=== PATIENT | female | born 2000 | race Caucasian/White ===

== ENCOUNTER 2021-08-06 13:08 | Emergency (ER) | payer OTHER, SELFPAY ==
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
[2021-08-06 13:13] VITALS: BP 123/64; PULSE 94
[2021-08-06 13:15] VITALS: BP 133/79; PULSE 80; RESP 16; TEMP 36.5; O2SAT 100
[2021-08-06 13:18] VITALS: BP 133/79; PULSE 97; RESP 18; TEMP 37.4; O2SAT 97; BMI 15.6
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
== END 2021-08-06 14:53 | disposition home or self-care (01) ==
PROVIDERS: Emergency Provider Emergency Medicine; PCP Hospitalist
DX: S09.90XA Unspecified injury of head, initial encounter (principal); V47.5XXA Car driver injured in collision with fixed or stationary object in traffic accident, initial encounter; Y93.89 Activity, other specified; Y92.414 Local residential or business street as the place of occurrence of the external cause; Y99.9 Unspecified external cause status
CPT/HCPCS: 70450; 99284

== ENCOUNTER 2022-01-30 06:13 | Outpatient (REF) | payer OTHER, SELFPAY ==
[2022-01-30 07:17] LABS: Hemoglobin 13.2 g/dl (12.0-16.0); Mean Corpuscular HGB Conc 32.2 g/dl (31.0-35.0); Mean Corpuscular Hemoglobin 27.4 pg (27.0-33.0); Mean Corpuscular Volume 85.2 fL (80.0-98.0); Mean Platelet Volume 11.2 fL (9.4-12.3); Platelet Count 170 X10*3/uL (160-400); Red Blood Count 4.81 X10*6/uL (4.20-5.50); Red Cell Distribution Width 11.9 % (11.0-16.0); White Blood Count 5.6 X10*3/uL (4.8-10.8)
[2022-01-30 07:58] LABS: TSH reflex Free T4 2.09 uIU/mL (0.32-4.0)
[2022-01-30 08:03] LABS: Alanine Aminotransferase 14 U/L (0-31); Albumin Level 4.4 g/dL (3.5-5.0); Alkaline Phosphatase 70 U/L (39-117); Anion Gap 12 (12-20); Aspartate Amino Transferase 18 U/L (5-31); Bilirubin Total 0.9 mg/dL (0.0-1.0); Blood Urea Nitrogen 10 mg/dL (9-16); Calcium 9.9 mg/dL (8.4-10.2); Carbon Dioxide 25 mmol/L (22-29); Chloride 104 mmol/L (96-108); Cholesterol 126 mg/dL; Estimated Glomerular Filt Rate > 60; Glucose Fasting 79 mg/dL (60-99); HDL Cholesterol 48 mg/dL; LDL Cholesterol Calculated 63 mg/dl; Potassium 4.2 mmol/L (3.3-5.1); Sodium 137 mmol/L (135-145); Total Protein 7.8 g/dL (6.5-8.0); Triglycerides 78 mg/dL
== END 2022-01-30 06:14 | disposition home or self-care (01) ==
LOC: HO.LAB 06:13
PROVIDERS: PCP Hospitalist; Visit Provider Hospitalist
DX: Z00.00 Encounter for general adult medical examination without abnormal findings (principal)
CPT/HCPCS: 36415; 80053; 80061; 84443; 85027

== ENCOUNTER 2023-09-12 11:16 | Outpatient (AMB) | payer OTHER, SELFPAY ==
--- NOTE | 2023-09-12 12:02 | MHC.OFFWIV ---
Intake Vital Signs 09/12/23 12:20 Weight 113 lb BP 128/70 Blood Pressure Location Lt brachial Position Sitting Pulse 91 Pulse Source Pulse Oximeter Pulse Oximetry (%) 99 Oxygen Delivery Method Room Air Intake Visit Reasons: EP AB pain [phone] Intake Note: pt is here today for AB pain started today Patient Tobacco Use Status: Never used Tobacco Allergies No Known Allergies Allergy (Verified 09/12/23 12:03) Do you need a note to return to daycare/school/sports/work: Yes HPI HPI Comments History of Present Illness Details 23-year-old female who is otherwise healthy presented to the walk-in clinic complaining lower abdominal pain. Patient states she has been feeling over the past several days. She woke up this morning with a stabbing pain in her mid lower abdomen. She states this lasted for a few minutes and essentially resolved though she does still have some mild lower abdominal discomfort. She denies any nausea//diarrhea. She denies any abdominal distention. She reports her last bowel movement was 1 week ago. She denies any dysuria/hematuria or urinary frequency/urgency. She denies any fevers or chills. [facility] Medical History (Updated 09/09/22 @ 17:49 by Mamadou Lucio MD) No known health problems Social History (System 10/08/21 @ 12:46 by Carito Benito) Patient Tobacco Use Status: Never used Tobacco Review of Systems Const All systems reviewed & are unremarkable except as noted in HPI and below Reports no additional complaints Eyes Reports no additional complaints ENT Reports no additional complaints Card Reports no additional complaints Resp Reports no additional complaints GI Reports no additional complaints Reports no additional complaints Musc Reports no additional complaints Skin/Breast Reports system reviewed and no additional complaints, except as documented Neuro Reports no additional complaints Psych Reports no additional complaints Endo Reports no additional complaints Joao/Lymph Reports no additional complaints Aller/Immun Reports no additional complaints Physical Exam Vital Signs: Last Vital Signs Pulse 91 09/12/23 12:20 BP 128/70 09/12/23 12:20 Pulse Ox 99 09/12/23 12:20 Oxygen Delivery Method Room Air 09/12/23 12:20 Const Other: Vital signs reviewed. Constitutional: Non-toxic appearing. No acute distress. Well-developed and well-nourished. HEENT: Normocephalic and atraumatic. Skin: Warm and dry. No rashes or lesions noted. Neck: Full and painless range of motion. No cervical lymphadenopathy. Cardio: Regular rate and rhythm. No murmurs, gallops, or rubs. No lower extremity edema. No JVD. Pulmonary: No respiratory distress. No accessory muscle usage. Gastrointestinal: Her abdomen is soft and nondistended. She has sounds in all 4 quadrants. She has minimal suprapubic tenderness to palpation. There is no rebound or guarding. Genitourinary: No CVA tenderness. Musculoskeletal: Normal range of motion in joints throughout the body. No deformity or other signs of injury. Neuro: Alert and oriented x4. Cranial nerves 2-12 grossly intact. No focal deficits appreciated. Psych: Normal mood and affect. Results AMB Urinalysis, Automated UA Leukoctes 0 Gustavo/uL Last Edit by Jose Alberto Ruiz CMA on 09/12/23 12:46 UA Nitrite Negative Last Edit by Jose Alberto Ruiz CMA on 09/12/23 12:46 UA Urobilinogen 0.2 mg/dL Last Edit by Jose Alberto Ruiz CMA on 09/12/23 12:46 UA Protein 0 mg/dL Last Edit by Jose Alberto Ruiz CMA on 09/12/23 12:46 UA pH 5.5 Last Edit by Jose Alberto Ruiz CMA on 09/12/23 12:46 UA Blood 0 Pacheco/uL Last Edit by Jose Alberto Ruiz CMA on 09/12/23 12:46 UA Specific Buchanan 1.030 Last Edit by Jose Alberto Ruiz CMA on 09/12/23 12:46 UA Ketone Negative Last Edit by Jose Alberto Ruiz CMA on 09/12/23 12:46 UA Bilirubin 1 mg/dL Last Edit by Jose Alberto Ruiz CMA on 09/12/23 12:46 UA Glucose 0 mg/dL Last Edit by Jose Alberto Ruiz CMA on 09/12/23 12:46 Results Reviewed Results Reviewed: Laboratory Last Values Urine pH (Auto) 5.5 09/12/23 12:45 Specific Buchanan (Auto) 1.030 09/12/23 12:45 Urine Protein (Auto) 0 mg/dL 09/12/23 12:45 Glucose (UA)(Auto) 0 mg/dL 09/12/23 12:45 Urine Ketones (Auto) Negative 09/12/23 12:45 Urine Blood (Auto) 0 Pacheco/uL 09/12/23 12:45 Urine Nitrite (Auto) Negative 09/12/23 12:45 Urine Bilirubin (Auto) 1 mg/dL 09/12/23 12:45 Urine Urobilinogen (Auto) 0.2 mg/dL 09/12/23 12:45 Leukocyte Esterase (Auto) 0 Gustavo/uL 09/12/23 12:45 Assessment & Plan Assessment & Plan (1) Abdominal pain: Code(s): R10.9 - Unspecified abdominal pain Qualifiers: Abdominal location: lower abdomen, unspecified Qualified Code(s): R10.30 - Lower abdominal pain, unspecified (2) Constipation: Code(s): K59.00 - Constipation, unspecified Qualifiers: Constipation type: unspecified constipation type Qualified Code(s): K59.00 - Constipation, unspecified Plan This is a 23 old female presenting to the office complaining of suprapubic/lower abdomen that lasted for a few minutes earlier this morning. The patient otherwise has no associated symptoms including nausea/vomiting/diarrhea, fever/chills, urinary symptoms, vaginal discharge/bleeding. The patient is not sexually active at this time and she reports she recently had her period so she is not concerned about . I will check routine labs including CBC, CMP, and lipase as well as a urinalysis to rule out acute intra-abdominal infection though I have very low suspicion given benign abdominal exam other than mild suprapubic tenderness to palpation. The patient has normoactive bowel sounds without abdominal distention or nausea/vomiting so bowel obstruction is also unlikely. If labs and urine are negative, the patient's abdominal pain is likely secondary to constipation as she has not had a bowel movement in 1 week. Her urine was negative so leuk esterase, nitrites, and blood. Patient declined test as above. I have sent prescriptions for MiraLax 17 g daily and Colace 100 mg daily as well as simethicone as needed for abdominal cramping/pain. Patient was advised to follow-up here or proceed to the emergency room if she were to develop persistent or worsening symptoms. Orders: Orders Complete Blood Count Auto Diff Today R10.9 - Unspecified abdominal pain Comprehensive Met. Panel Today R10.9 - Unspecified abdominal pain Lipase Today R10.9 - Unspecified abdominal pain AMB Urinalysis Automated Today Z13.9 - Encounter for screening, unspecified Medications: New simethicone (Gas Relief 80 (simethicone)) 80 mg PO TID-QID PRN 14 tabs 0RF abdominal distention/cramping polyethylene glycol 3350 (Miralax) 17 grams PO DAILY 14 ea 0RF docusate sodium 100 mg PO DAILY 14 caps 0RF Coding Level of Care Code Est Pt Level 3 (70644) Diagnoses Lower abdominal pain R10.30 Abdominal location: lower abdomen, unspecified Constipation, unspecified constipation type K59.00 Constipation type: unspecified constipation type
[2023-09-12 12:20] VITALS: BP 128/70; PULSE 91; O2SAT 99
== END 2023-09-12 13:13 | disposition home or self-care (01) ==
PROVIDERS: PCP Hospitalist; Visit Provider Physician Assistant Medical
DX: R10.30 Lower abdominal pain, unspecified (principal); K59.00 Constipation, unspecified
CPT/HCPCS: 81003; 99213

== ENCOUNTER 2023-09-12 12:53 | Outpatient (REF) | payer OTHER, SELFPAY ==
[2023-09-12 16:07] LABS: MANUAL DIFF FLAG NO
[2023-09-12 16:23] LABS: Basophils Percent Auto 0.2 % (0-2); Eosinophils Absolute Auto 0.1 X10*3/uL (0.0-0.4); Hematocrit 41.6 % (37.0-47.0); Hemoglobin 13.5 g/dl (12.0-16.0); Imm Gran Abs Auto 0.03 X10*3/uL (0.00-0.03); Imm Gran Pct Auto 0.4 % (0.0-0.4); Lymphocytes Absolute Auto 1.3 X10*3/uL (1.2-4.9); Lymphocytes Percent Auto 16.2 % (20-40); Mean Corpuscular HGB Conc 32.5 g/dl (31.0-35.0); Mean Corpuscular Hemoglobin 27.9 pg (27.0-33.0); Mean Platelet Volume 11.6 fL (9.4-12.3); Monocytes Absolute Auto 0.6 X10*3/uL (0.1-1.2); Monocytes Percent Auto 7.1 % (2-11); Neutrophils Absolute Auto 6.1 x10*3/uL (2.0-8.3); Neutrophils Percent Auto 75.1 % (45-73); Platelet Count 202 X10*3/uL (160-400); Red Blood Count 4.84 X10*6/uL (4.20-5.50); Red Cell Distribution Width 12.3 % (11.0-16.0); White Blood Count 8.1 X10*3/uL (4.8-10.8)
[2023-09-12 16:43] LABS: Alanine Aminotransferase 10 U/L (0-31); Albumin Level 4.6 g/dL (3.5-5.0); Alkaline Phosphatase 65 U/L (39-117); Anion Gap 10 (12-20); Aspartate Amino Transferase 17 U/L (5-31); Blood Urea Nitrogen 7 mg/dL (9-16); Calcium 9.7 mg/dL (8.4-10.2); Carbon Dioxide 24 mmol/L (22-29); Chloride 108 mmol/L (96-108); Estimated Glomerular Filt Rate > 60; Glucose Random 85 mg/dL (60-115); Lipase 12 U/L (8-78); Sodium 138 mmol/L (135-145); Total Protein 8.1 g/dL (6.5-8.0)
== END 2023-09-12 12:54 | disposition home or self-care (01) ==
LOC: HO.HMGCLDS 12:53
PROVIDERS: Visit Provider Physician Assistant Medical
DX: R10.9 Unspecified abdominal pain (principal)
CPT/HCPCS: 36415; 80053; 83690; 85025

== ENCOUNTER 2023-10-29 12:26 | Outpatient (AMB) | payer OTHER, SELFPAY ==
--- NOTE | 2023-10-29 12:36 | MHC.PC.OV ---
Vital Signs 10/29/23 12:41 Height 5 ft 8 in Weight 112 lb BMI 17.0 BP 120/68 Blood Pressure Location Lt brachial Position Sitting Respiration 12 Pulse 74 Pulse Source Pulse Oximeter Temp 99.3 F Temp Source Temporal Artery Scan Pulse Oximetry (%) 100 Oxygen Delivery Method Room Air Intake Visit Reasons: Trans. from SV-Physical Exam Intake Note: Patient is here for a physical for work. 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 Patient reports no concerns at this time. 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 Accompanied by: Self / Same As Patient Allergies No Known Allergies Allergy (Verified 10/29/23 13:05) Medication List - Last Reconciled 10/29/23 by HARMONY Tan cetirizine (Zyrtec) 10 mg PO DAILY ibuprofen 600 mg PO Q8H PRN Tobacco use date assessed: 10/29/23 Dental Screening Dental Screen Date: 10/29/23 Did you have a dental visit in the last 12 months?: Yes Did you have a dental problem in the last 6 months where you did not have access to dental care?: No Was dental information given to patient?: Patient has dentist HPI HPI Comments History of Present Illness Details 23-year-old female with Seasonal allergies Health maintenance Pap smear never; referral placed today Eyes no concerns; no recent eye exam Skin no issues Dental routine Vaccines UTD, declines flu Surgeries: None Hospital: none in last year Family Medical Hx: Mom and Dad Alive. No children. Siblings: brother and sister alive and well Labs from 09/12/2023 show normal CBC, normal CMP, normal urine labs from January of 2022 show normal cholesterol profile Here today for [facility] Medical History No known health problems Surgical History No pertinent past surgical history Social History Household Members: Family Housing: House 75 years or older and lives alone: No Alcohol intake: never Patient Tobacco Use Status: Never used Tobacco e-Cigarette/Vaping Use: Never Used service: No Current occupational status: employed Current occupation: Teacher Sexual orientation: Unable to collect Gender identity: Unable to collect Cognitive needs: No Hearing needs: No Vision needs: No Questionnaire PHQ-9 Over the last 2 weeks, how often have you been bothered by any of the following problems? 1. Little interest or pleasure in doing things: not at all 2. Feeling down, depressed, or hopeless: not at all 3. Trouble falling or staying asleep, or sleeping too much: not at all 4. Feeling tired or having little energy: not at all 5. Poor appetite or overeating: not at all 6. Feeling bad about yourself - or that you are a failure or have let yourself or your family down: not at all 7. Trouble concentrating on things, such as reading the newspaper or watching television: not at all 8. Moving or speaking so slowly that other people could have noticed. Or the opposite - being so fidgety or restless that you have been moving around a lot more than usual: not at all 9. Thoughts that you would be better off or of hurting yourself in some way: not at all Total score: 0 Depression Screening Interpretation: Negative Depression Screening Done: Yes 90292 - PHQ-9 Billing: Yes Source: Developed by Drs. Remington Cordova, Blank Nesbitt, Landry Torres and colleagues, with an educational neal from [employer]. Thrive Questionnaire Date Thrive assessed: 10/29/23 I am a: Patient What is your living situation today?: I have a steady place to live Within the past 12 months, did the food you bought not last and you didn't have the money to get more?: Never true Within the past 12 months, did you worry whether your food would run out before you got money to buy more?: Never true Do you have trouble paying for medicines?: No Do you have trouble getting transportation to medical appointments?: No Do you have trouble paying your heating and electricity bill?: No Do you have trouble taking care of your child, family member or friend?: No Do you have trouble with day-to-day activities such as bathing, preparing meals, shopping, managing finances, etc.?: No Are you currently unemployed and looking for a job?: No Are you interested in more education?: No Please select the resources that you would like help with: None Currently or been in a relationship where the following occur: no concerns reported THRIVE Score: 0 AUDIT C Alcohol Use Questionnaire (AUDIT-C) 1. How often do you have a drink containing alcohol?: Never 3. How often do you have six or more drinks on one occasion?: Never Total Score: 0 Score Reviewed/Action Taken: Yes RHEA-7 AMB Questionnaire RHEA-7 Date RHEA - 7 assessed: 10/29/23 Feeling nervous, anxious, or on edge: 0 = Not at all Not being able to stop or control worryin = Not at all Worrying too much about different things: 0 = Not at all Trouble relaxin = Not at all Being so restless that it is hard to sit still: 0 = Not at all Becoming easily annoyed or irritable: 0 = Not at all Feeling afraid as if something awful might happen: 0 = Not at all Total RHEA-7 score (0-4 normal; 5-9 mild; 10-14 moderate; 15-21 severe): 0 Source: Developed by Drs. Remington Cordova, Blank Nesbitt, Landry Torres and colleagues, with an educational neal from [employer]. RHEA-7 Assessment Billing RHEA-7 Assessment Tool: RHEA-7 Assessment 85987 Review of Systems Const Details: Constitutional: Denies fever. Skin: Denies rash. Eye: Denies eye pain. ENMT: Denies sore throat and nasal congestion. Respiratory: Denies shortness of breath and cough. Gastrointestinal: Denies nausea, vomiting or abdominal pain. Cardiovascular: Denies chest pain and syncope. Genitourinary: Denies dysuria. Musculoskeletal: Denies back pain and extremity pain. Neurologic: Denies headaches, confusion, and weakness. Psychiatric: Denies suicidal thoughts and substance abuse. Allergy/ Immunologic: Denies impaired immunity. Physical exam (Primary Care) Vital Signs: Last Vital Signs Temp 99.3 F 10/29/23 12:41 Pulse 74 10/29/23 12:41 Resp 12 10/29/23 12:41 BP 120/68 10/29/23 12:41 Pulse Ox 100 10/29/23 12:41 Oxygen Delivery Method Room Air 10/29/23 12:41 BMI result Body Mass Index 17.0 BMI Assessment/Plan discussion: Low BMI Low, Plan discussed: increase calorie intake Tobacco/Smoking Status: Tobacco use Status Tobacco use date assessed 10/29/23 10/29/23 12:56 Patient Tobacco Use Status Never used Tobacco 10/29/23 12:54 e-Cigarette/Vaping Use Never Used 10/29/23 12:56 PHQ-9: PHQ-9 Score PHQ-9: Total score 0 10/29/23 13:08 Depression Screening Interpretation: Negative Thrive Assessment: Date of Thrive Assessment Date Thrive assessed 10/29/23 10/29/23 12:56 Currently or been in a relationship where the following occur: no concerns reported Const Other: General: Thin Head: Normocephalic, atraumatic. Eyes: Pupils are equal, round and reactive to light and accommodation. Conjunctivae are clear. Vision grossly normal. Ears: TMs clear AU, EACS WNL Nose: Patent, without discharge. Mouth: There are no ulcers or lesions noted. No inflammation, no post nasal drip, no plaques nor exudates. Neck: Supple, no adenopathy or thyromegaly. Lungs: Clear to auscultation bilaterally. No rales, rhonchi or wheeze noted. Good air flow in all morelos. Heart: Regular rate and rhythm. No murmurs, click, rubs or gallops are noted. Abdomen: Bowel sounds present in all quadrants. The abdomen is soft, nontender, with no masses or organomegaly noted. No hernias are noted. Musculoskeletal: Joints are nontender, without swelling, redness, or effusions. Range of motion is observed to be normal. Pulses: Peripheral pulses are equal and palpable bilaterally. Extremities: No clubbing, cyanosis nor edema is noted. Neurologic: Gait and station normal. Cranial Nerves 2-12 intact. Motor strength grossly symmetrical and intact. No sensory loss. Balance normal. Skin: No rashes, ulcers, or lesions noted. Turgor is good. Skin color is good. Hair and nails are without abnormalities. Psych: Normal eye contact, affect and mood appropriate, and normal interactions. Patient is alert and appropriate to context. Assessment and Plan Assessment & Plan (1) Normal physical exam: Code(s): Z00.00 - Encounter for general adult medical examination without abnormal findings (2) Cervical cancer screening: Code(s): Z12.4 - Encounter for screening for malignant neoplasm of cervix Orders: Referrals [facility]ER Referral Z00.00 - Encounter for general adult medical examination without abnormal findings, Z12.4 - Encounter for screening for malignant neoplasm of cervix Patient Instructions: Health screenings for women ages 18 to 39 You should visit your health care provider from time to time, even if you are healthy. The purpose of these visits is to: Screen for medical issues Assess your risk for future medical problems Encourage a healthy lifestyle Update vaccinations and other preventive care services Help you get to know your provider in case of an illness Information Even if you feel fine, you should still see your provider for regular checkups. These visits can help you avoid problems in the future. For example, the only way to find out if you have high blood pressure is to have it checked regularly. High blood sugar and high cholesterol levels also may not have any symptoms in the early stages. A simple blood test can check for these conditions. There are specific times when you should see your provider or receive specific health screenings. The [place] Preventive Services Task Force publishes a list of recommended screenings. Below are screening guidelines for women ages 18 to 39. BLOOD PRESSURE SCREENING Your blood pressure should be checked at least once every 3 to 5 years if: Your blood pressure is in the normal range (top number less than 120 mm Hg and bottom number less than 80 mm Hg) You don't have risk factors for high blood pressure Ask your provider if you need your blood pressure checked more often if: The top number is 120 to 129 mm Hg or the bottom number is 70 to 79 mm Hg You have diabetes, heart disease, kidney problems, are overweight, or have certain other health conditions You have a first-degree relative with high blood pressure You are Black You had high blood pressure during a If the top number is 130 mm Hg or greater or the bottom number is 80 mm Hg or greater, this is considered stage 1 hypertension. Schedule an appointment with your provider to learn how you can reduce your blood pressure. Watch for blood pressure screenings in your area. Ask your provider if you can stop in to have your blood pressure checked. BREAST CANCER SCREENING Experts do not agree about the benefits of breast self-exams in finding breast cancer or saving lives. Talk to your provider about what is best for you. A screening mammogram is not recommended for most women under age 40. Your provider may discuss and recommend mammograms, MRI scans, or ultrasounds if you have an increased risk for breast cancer, such as: A mother or sister who had breast cancer at a young age (most often starting screening earlier than the age the close relative was diagnosed) You carry a high-risk genetic marker CERVICAL CANCER SCREENING Cervical cancer screening should start at age 21 years unless your provider advises otherwise. After the first test: Women ages 21 through 29 should have a Pap test every 3 years. Exoprts do not agree on whether HPV testing is recommended for this age group. Women ages 30 through 65 should be screened with either a Pap test every 3 years or the HPV test every 5 years or both tests every 5 years (called cotesting ). Women who have been treated for precancer (cervical dysplasia) should continue to have Pap tests for 20 years after treatment or until age 65, whichever is longer. If you have had your uterus and cervix removed (total hysterectomy), and you have not been diagnosed with cervical cancer or precancer (high grade cervical neoplasia), you do not need cervical cancer screening. CHOLESTEROL SCREENING Cholesterol screening should begin at: Age 45 for women with no known risk factors for coronary heart disease Age 20 for women with known risk factors for coronary heart disease Repeat cholesterol screening should take place: Every 5 years for women with normal cholesterol levels More often if changes occur in lifestyle (including weight gain and diet) More often if you have diabetes, heart disease, kidney problems, or certain other conditions DIABETES SCREENING You should be screened for diabetes starting at age 35 and then repeated every 3 years if you have no risk factors for diabetes. Screening may need to start earlier and be repeated more often if you have other risk factors for diabetes, such as: You have a first degree relative with diabetes. You are overweight or have obesity. You have high blood pressure, prediabetes, or a history of heart disease. Screening for diabetes should be done if you are planning to become and you are overweight and have other risk factors such as high blood pressure. DENTAL EXAM Go to the dentist once or twice every year for an exam and cleaning. Your dentist will evaluate if you need more frequent visits. EYE EXAM Have an eye exam every 5 to 10 years before age 40. If you have vision problems, have an eye exam every 2 years or more often if recommended by your provider. You should have an eye exam that includes an examination of your retina (back of your eye) at least every year if you have diabetes. IMMUNIZATIONS Commonly needed vaccines include: Flu shot: get one every year. COVID-19 vaccine: ask your provider what is best for you. Tetanus-diphtheria and acellular pertussis (Tdap) vaccine: have one at or after age 19 as one of your tetanus-diphtheria vaccines if you did not receive it as an adolescent. Tetanus-diphtheria: have a booster (or Tdap) every 10 years. Varicella vaccine: receive 2 doses if you never had chickenpox or the varicella vaccine. Hepatitis B vaccine: receive 2, 3, or 4 doses, depending on your exact circumstances. Measles, mumps, and rubella (MMR) vaccine: receive 1 to 2 doses if you are not already immune to MMR. Your provider can tell you if you are immune. Ask your provider about the human papillomavirus (HPV) vaccine if: You have not received the HPV vaccine in the past You have not completed the full vaccine series (you should catch up on this shot) Ask your provider if you should receive other immunizations if you have certain health problems that increase your risk for some diseases such as pneumonia. INFECTIOUS DISEASE SCREENING Women who are sexually active should be screened for chlamydia and gonorrhea up until age 25. Women 25 years and older should be screened for chlamydia and gonorrhea if at high risk. Screening for hepatitis C: All adults ages 18 to 79 should get a one-time test for hepatitis C. people should be screened at every . Screening for human immunodeficiency virus (HIV): All people ages 15 to 65 should get a one-time test for HIV. Depending on your lifestyle and medical history, you may also need to be screened for infections such as syphilis and HIV, as well as other infections. PHYSICAL EXAM All adults should visit their provider from time to time, even if they are healthy. The purpose of these visits is to: Screen for disease Assess your risk of future medical problems Encourage a healthy lifestyle Update your vaccinations and other preventive care services Maintain a relationship with a provider in case of an illness Your height, weight, and BMI should be checked at every exam. During your exam, your provider may ask you about: Depression and anxiety Diet and exercise Alcohol and tobacco use Safety issues, such as using seat belts, smoke detectors, and intimate partner violence Your medicines and risk for interactions SKIN SELF-EXAM Your provider may check your skin for signs of skin cancer, especially if you're at high risk, such as if you: Have had skin cancer before Have close relatives with skin cancer Have a weakened immune system OTHER SCREENING Talk with your provider about colon cancer screening if you have a strong family history of colon cancer or polyps, or if you have had inflammatory bowel disease or polyps yourself. Routine bone density screening of women under 40 is not recommended. Review Flu Vaccine not done: patient reason Coding Level of Care Code Est Pt Prev Care 18-39y(07051) Diagnoses Normal physical exam Z00.00 Cervical cancer screening Z12.4 Additional Codes RHEA-7 Assessment Billing - RHEA-7 Assessment Tool: RHEA-7 Assessment [id number] ([id number])
[2023-10-29 12:41] VITALS: BP 120/68; PULSE 74; RESP 12; TEMP 37.4; O2SAT 100; BMI 17.0
== END 2023-10-29 13:17 | disposition home or self-care (01) ==
PROVIDERS: PCP Hospitalist; Visit Provider Nurse Practitioner Family
DX: Z00.00 Encounter for general adult medical examination without abnormal findings (principal); Z12.4 Encounter for screening for malignant neoplasm of cervix
CPT/HCPCS: 99395

== ENCOUNTER 2023-12-23 13:02 | Outpatient (REF) | payer OTHER, SELFPAY | END 2023-12-23 13:03 | disposition home or self-care (01) | LOC: HO.LAB 13:02 | PROVIDERS: PCP Hospitalist; Visit Provider Advanced Practice Midwife | DX: Z01.419 Encounter for gynecological examination (general) (routine) without abnormal findings (principal) | CPT/HCPCS: 88142; 99385 ==

== ENCOUNTER 2023-12-23 13:02 | Outpatient (AMB) | payer OTHER, SELFPAY ==
--- NOTE | 2023-12-23 13:04 | A.OFFVIS_ITS ---
Vital Signs 12/23/23 13:09 Height 5 ft 8 in Weight 113 lb BMI 17.2 BP 110/60 Intake Visit Reasons: New patient Annual Obiee Lead Developer Required: No Information Interpreted: clinical only Distance Education Director: Distance Education Director Present Allergies No Known Allergies Allergy (Verified 12/23/23 13:12) Medication List - Last Reconciled 12/23/23 by Shahnaz Ramsey CNM cetirizine (Zyrtec) 10 mg PO DAILY ibuprofen 600 mg PO Q8H PRN Is last menstrual period known: Yes Last menstrual period: 11/29/23 Do you need a note to return to daycare/school/sports/work: No HPI HPI New patient Annual: Details: Is here for her 1st superintendent horticulture exam she brought her mother alone for moral support she checked with her mom about answers to certain questions. She is not sexually active she never has been she said she thought about it once when she was 15 but did not do anything about it. She has no questions about control she has no interest in being sexually active at this time. 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 She is healthy she tries to eat well and take care of herself and is active. She is allergic to her 3 dogs and she takes Zyrtec to deal with the allergies. She just switched nurse practitioners the when she had left. She used to go to [facility] when she was young her mother says that she got all of her vaccines including the HPV vaccine. She is nervous about having her 1st pelvic exam today. Her periods are regular her last 3-5 days they come right when she expects them to and she has some mild cramps but they do not stop her from doing what she needs to do and she just moves on.. [facility] Medical History No known health problems Surgical History No pertinent past surgical history Social History Household Members: Family Housing: House 75 years or older and lives alone: No Alcohol intake: never Patient Tobacco Use Status: Never used Tobacco e-Cigarette/Vaping Use: Never Used service: No Current occupational status: employed Current occupation: Teacher Sexual orientation: Unable to collect Gender identity: Unable to collect Cognitive needs: No Hearing needs: No Vision needs: No Female Reproductive History Menstrual Age of Menarche: 13 Duration of menses: 3-5 days Date of last menstrual period: 11/29/23 control method: none Total pregnancies: 0 Full term: 0 History of abnormal pap smear: No (no previous pap) Physical Exam Vital Signs: Last Vital Signs BP 110/60 12/23/23 13:09 BMI result Body Mass Index 17.2 Const General: healthy appearing, comfortable, no acute distress, well developed and alert Nutritional Appearance: average body habitus and thin Orientation/consciousness: patient oriented x3 Limitations: no limitations HEENT Head: Yes normocephalic Neck Neck: Yes normal visual inspection Chest Chest palpation & inspection: normal inspection of the chest Breast/axilla inspection: normal inspection of the breasts and normal inspection of the axillae Breast/axilla palpation: normal palpation of the breasts and normal palpation of the axillae Resp Effort & Inspection: normal respiratory effort GI Inspection: Yes normal to inspection, No Abdominal wall edema and No distended Palpation (GI): Soft to palpation and nontender Other: Gentle 1st pelvic done external vulva within normal limits vagina is pink and smooth intact hymen vagina pink and rugated healthy mucous. Cervix pink nulliparous very very posterior. Slightly friable with Pap smear. Uterus chall enging to feel secondary to single digit exam only but midposition anteverted mobile nontender patient has bladders full adnexa nontender good tone with Kegel when able to recreate. General: Yes bladder normal to palpation External Female Exam: normal external appearance and normal appearance of the urethra Speculum Exam - Vagina: normal appearance of the vagina, normal palpation and normal vaginal discharge Speculum Exam - Cervix: normal appearance of the cervix, normal palpation and no ntender Bimanual exam- vagina & uterus: normal bimanual exam, normal palpation, uterine size normal, bladder normal to palpation, consistency normal, normal palpation, uterine mobility normal, uterine shape normal, No Cervical tenderness present, non-tender and no cervical motion tenderness Bimanual Exam- Adnexa, other: normal adnexae, no masses, normal and No adnexal tenderness Neuro General: patient oriented x3 Assessment & Plan Assessment & Plan (1) Cervical cancer screening: Code(s): Z12.4 - Encounter for screening for malignant neoplasm of cervix Category: Medical (2) Well woman exam with routine gynecological exam: Code(s): Z01.419 - Encounter for gynecological examination (general) (routine) without abnormal findings Category: Medical Plan -----Discussed in this visit the following: healthy balanced diet, regular and consistent exercise, getting recommended health screens, doing the best she can for her particular health concerns, kegel exercises, pap smear screening and followup recommendations, mammography screening and SBE, normal changes in cycles in her life stage--- .I reviewed with her the usual components of a pelvic exam. I explained the tool called the speculum and how it is used to help us see her cervix and check for infections with Q-tips, that we then send to the lab in tubes, and also how we do a Pap smear and what that is checking for. Discussed the reasons for doing these tests. Also discussed how infections are transmitted from 1 person to another, but also how some infections can just be an imbalance in a bacteria or fungus in the vagina as and that the exam is a way to tell what is going on. Also discussed reasons why somebody might not need to have an exam at this particular time. Also discussed what we check for when we are doing a bimanual exam, (checking ovaries and cervix and uterus, and muscles). I showed her the speculum and offered a mirror so that she can watch during the exam as well. Discussed relaxing during the exam, and that while it may be a little bit uncomfortable, as it is invasive, but that it should not hurt, and if she feels like it is hurting, then that that is a reason to stop if she does not feel comfortable. Discussed that while doing these exams are necessary to help figure things out, and also to do some screening tests at certain important times, they are not always necessary and do not always have to be done just be cause they are scheduled. First Pap smear would be at age 21, and testing for sexually transmitted infection and should occur any time somebody is at risk for having been exposed. Any time someone has itching, burning, a bad smell, or some other concern about their vaginal area, is a time to be checked as well. In the end, having a vaginal or speculum exam is a method of checking the most private and sensitive part of a Women's body and it should always be done with the woman herself in full control. Discussed the normal menstrual cycles, in terms of length of time for each part of the cycle, range of experiences for bleeding/periods, cramping and clots and the various ways of handling all of these including the various menstrual products available today and common use of non inflammatory medications such as ibuprofen to help with the cramping, and changes in vaginal and cervical discharge that occur throughout the changes in the menstrual cycle. Also discussed what is happening in the ovaries, with preparing to ovulate, ovulation, and what happens afterward as well. Discussed signs of ovulation including fertile appearing mucus, libido changes, breast changes, ovulatory pain and twinges, and the optimal /most risky times to become . Reviewed that menstrual cycles do not obey the printed calendar, but rather follow the body's own cycle discussed what can sometimes h appen if the cycle is interrupted by other health events such as anovulatory cycles. Discussed other metabolic changes that have a very profound effect on menstrual cycles including weight and the increased hormones that occur in that setting. General health teaching done discussed why she does not need any testing for STIs at this point in time but if she ever did become sexually active that would be a time to start. Discussed that condoms are a girls best friend, and offer protection from many different things including infections and . Reviewed that we are going to say come back in a year, but if she has not become sexually active, has no problems with her periods whatsoever, is doing fine and making sure that she follows up with at least a primary care provider, then she may not need a superintendent horticulture exam for another 3 years when her next Pap smear would be due presuming it will be negative. Discussed the value of the HPV vaccine which she has received at [employer] when she was a teen and pre teen. Discussed healthy practices Also discussed using this time an opportunity to be aware of the changes that go on in her body during her menstrual cycle as she is not introducing anything else to it at this time such as hormones or sexual activity it is a perfect opportunity to do some self observation and learning. She may return at any time if she has need our services in any other way as well. Orders: Orders Pap Smear Today Z01.419 - Encounter for gynecological examination (general) (routine) without abnormal findings Coding Level of Care Code New Pt Prev Care [id number] Diagnoses Cervical cancer screening Z12.4 Well woman exam with routine gynecological exam Z01.419
[2023-12-23 13:09] VITALS: BP 110/60; BMI 17.2
== END 2023-12-23 14:05 | disposition home or self-care (01) ==
LOC: HO.HWSM 13:02
PROVIDERS: PCP Hospitalist; Visit Provider Advanced Practice Midwife
DX: Z12.4 Encounter for screening for malignant neoplasm of cervix (principal); Z01.419 Encounter for gynecological examination (general) (routine) without abnormal findings
CPT/HCPCS: 99385

== ENCOUNTER 2024-11-15 10:37 | Outpatient (REF) | payer OTHER, SELFPAY ==
[2024-11-15 14:48] LABS: Estimated Average Glucose 88 mg/dL; Hemoglobin A1c % 4.7 % (<6.0)
[2024-11-15 14:57] LABS: Creatinine Urine 167.92 mg/dL; Microalbum/Creatinine Ratio Ur 6.5 ug/mg cr (<30)
[2024-11-15 15:02] LABS: Alanine Aminotransferase 14 U/L (0-31); Albumin Level 4.5 g/dL (3.5-5.0); Alkaline Phosphatase 79 U/L (39-117); Anion Gap 12 (12-20); Aspartate Amino Transferase 28 U/L (5-31); Bilirubin Total 0.6 mg/dL (0.0-1.0); Blood Urea Nitrogen 10 mg/dL (9-16); Calcium 9.9 mg/dL (8.4-10.2); Carbon Dioxide 24 mmol/L (22-29); Chloride 107 mmol/L (96-108); Cholesterol 131 mg/dL (<200); Estimated Glomerular Filt Rate > 60; Glucose Random 82 mg/dL (60-115); HDL Cholesterol 53 mg/dL (>40); LDL Cholesterol Calculated 61 mg/dL (<100); Potassium 4.8 mmol/L (3.3-5.1); Sodium 138 mmol/L (135-145); Total Protein 8.7 g/dL (6.5-8.0); Triglycerides 85 mg/dL (<150)
[2024-11-15 15:18] LABS: TSH reflex Free T4 1.36 uIU/mL (0.32-4.0); Vitamin D 25-OH Total 24.4 ng/mL (>30)
[2024-11-15 15:27] LABS: Folate 14.6 ng/mL (> or = 4.0); Vitamin B12 493 pg/mL (200-900)
== END 2024-11-15 10:38 | disposition home or self-care (01) ==
LOC: HO.WFDLDS 10:37
PROVIDERS: PCP Nurse Practitioner Family; Visit Provider Nurse Practitioner Family
DX: Z00.00 Encounter for general adult medical examination without abnormal findings (principal); T78.40XS Allergy, unspecified, sequela; H60.543 Acute eczematoid otitis externa, bilateral; Z28.21 Immunization not carried out because of patient refusal; Z80.8 Family history of malignant neoplasm of other organs or systems
CPT/HCPCS: 36415; 80053; 80061; 82043; 82306; 82570; 82607; 82746; 83036; 84443; 96127; 99395

== ENCOUNTER 2024-11-15 10:37 | Outpatient (AMB) | payer OTHER, SELFPAY ==
--- NOTE | 2024-11-15 10:47 | A.OFFPC_ITS ---
Vital Signs 11/15/24 10:56 Height 5 ft 8 in Weight 119 lb 2 oz BMI 18.1 BP 98/66 Blood Pressure Location Lt brachial Position Sitting Respiration 12 Pulse 80 Pulse Source Pulse Oximeter Temp 96.8 F Temp Source Oral Pulse Oximetry (%) 98 Oxygen Delivery Method Room Air Intake Visit Reasons: PE Intake Note: annual physical Housing Property Manager Required: No Allergies No Known Allergies Allergy (Verified 11/15/24 11:05) Medication List - Last Reconciled 11/15/24 by GREER Tan- cetirizine (Zyrtec) 10 mg PO DAILY Tobacco use date assessed: 11/15/24 Dental Screening Dental Screen Date: 11/15/24 Did you have a dental visit in the last 12 months?: Yes Did you have a dental problem in the last 6 months where you did not have access to dental care?: No Was dental information given to patient?: Patient has dentist HPI HPI Comments History of Present Illness Details 24-year-old female with Seasonal allergi es, acne, marfanoid habitus, family hx thyroid ca (mom) Health maintenance Pap smear 12/2023 [place] [facility] [place] no concerns; no recent eye exam Skin acne no other issues Dental routine Vaccines declined flu and tdap Surgeries: None Hospital: none in last year Family Medical Hx: Mom thyroid cancer, Dad Alive. No children. Siblings: brother and sister alive and well - The patient is a 24-year-old female pr esenting for a routine physical examination. - Reports itchiness in the external ears resulting in dry skin and swelling. Described as ongoing but with no specific onset date. - Acne management discussed in detail; c urrently using a non-specific product for acne. Recommendations for effective OTC options were provided. - Allergy management: Zyrtec usage for c ontrolling pet-related allergies is noted. - Family history update includes the mot her diagnosed with thyroid cancer. - Denies the use of alcohol, tobacco, or other substances. - Participates in routine health mainten ance, including cervical and dental screenings. Review of Systems - Dermatological: Reports itchiness of e xternal ears; denies other issues bes ides acne and non-significant dermatological concerns. - Psychological: Denies depression, anxi ety, or changes in mood. - Genitourinary: Denied issues with urin ation or bowel movements; routine pers onal checks for breast lumps recommended. Exam: General: Awake alert NAD accompanied by mom, marfanoid habitus Head: Normocephalic, atraumatic. Eyes: Pupils are equal, round and reactive to light and accommodation. Conjunctivae are clear. Vision grossly normal. Ears: TMs clear AU, EACS WNL Dry flaky skin bilat EAC R>L Nose: Patent, without discharge. Mouth: There are no ulcers or lesions noted. No inflammation, no post nasal drip, no plaques nor exudates. Neck: Supple, no adenopathy or thyromegaly. Lungs: Clear to auscultation bilaterally. No rales, rhonchi or wheeze noted. Good air flow in all morelos. Breast: reviewed SBE Heart: Regular rate and rhythm. No murmurs, click, rubs or gallops are noted. Abdomen: Bowel sounds present in all quadrants. The abdomen is soft, nontender, with no masses or organomegaly noted. No hernias are noted. Musculoskeletal: Joints are nontender, without swelling, redness, or effusions. Range of motion is observed to be normal. : deferred, reviewed current [employer] WORKER screening recommendations Pulses: Peripheral pulses are equal and palpable bilaterally. Extremities: No clubbing, cyanosis nor edema is noted. Neurologic: Gait and station normal. Cranial Nerves 2-12 intact. Motor strength grossly symmetrical and intact. No sensory loss. Balance normal. Skin: No rashes, ulcers, or lesions noted. Turgor is good. Skin color is good. Hair and nails are without abnormalities. Psych: Normal eye contact, affect and mood appropriate, and normal interactions. Patient is alert and appropriate to context. Results Labs from 09/12/2023 show normal CBC, normal CMP, normal urine labs from January of 2022 show normal cholesterol profile Discussion Notes I discussed the management and treatment options for the patient's dermatological concerns. For atopic dermatitis, an ointment (desonide) was prescribed to be applied to the affected external ear areas. Risks and benefits were explained, including the potential for skin dryness. A suggestion to explore [id number] acne treatments was made, highlighting the potential efficacy and side effects. I encouraged regular skin assessments and recommended monitoring for any new or worsening symptoms. I invited the patient to obtain routine labs to maintain health surveillance, ensuring no underlying issues are present. Preventive care such as routine cervical cancer screening was highlighted, with a review of normal recent results assuring continued health oversight. Consent was obtained for treatment plan implementation, including ointment use and lab arrangements. Assessment and Plan 1. Atopic Dermatitis (Eczema): The patie nt has localized eczema in her external ears. Desonide ointment has been prescribed for application twice daily until improvement. The patient was instructed to report any exacerbation or adverse effects from the ointment. 2. Acne Vulgaris: Recommendations includ e trying OTC acne products like Proactive or PanOxyl. These products are noted for their efficacy in acne treatment despite potential side effect of dryness, which can be managed by adjusting application frequency. Patient Instructions - Use desonide ointment on the affected ear areas twice daily until symptoms improve; stop application if symptoms resolve or worsen. - Consider [id number] products for acne treatment and monitor skin for excessive dryness. Adjust frequency as necessary. - Maintain regular cervical cancer scree nings and dental care. - Report any new concerning symptoms or changes in existing conditions. RTO 1 year CPE, sooner PRN Consent Patient was informed and verbally consented to the use of an ambient scribe for clinic note documentation during this visit. [facility] Medical History No known health problems Surgical History No pertinent past surgical history Social History Household Members: Family Housing: House 75 years or older and lives alone: No Alcohol intake: never Patient Tobacco Use Status: Never used Tobacco e-Cigarette/Vaping Use: Never Used service: No Current occupational status: employed Current occupation: Teacher Sexual orientation: Unable to collect Gender identity: Unable to collect Cognitive needs: No Hearing needs: No Vision needs: No Female Reproductive History Menstrual Age of Menarche: 13 Questionnaire PHQ-9 Over the last 2 weeks, how often have you been bothered by any of the following problems? 1. Little interest or pleasure in doing things: not at all 2. Feeling down, depressed, or hopeless: not at all 3. Trouble falling or staying asleep, or sleeping too much: not at all 4. Feeling tired or having little energy: not at all 5. Poor appetite or overeating: not at all 6. Feeling bad about yourself - or that you are a failure or have let yourself or your family down: not at all 7. Trouble concentrating on things, such as reading the newspaper or watching television: not at all 8. Moving or speaking so slowly that other people could have noticed. Or the opposite - being so fidgety or restless that you have been moving around a lot more than usual: not at all 9. Thoughts that you would be better off or of hurting yourself in some way: not at all Total score: 0 Depression Screening Interpretation: Negative Depression Screening Done: Yes 59389 - PHQ-9 Billing: Yes Source: Developed by Drs. Remington Cordova, Blank Nesbitt, Landry Torres and colleagues, with an educational neal from [employer]. Thrive Questionnaire Date Thrive assessed: 11/15/24 I am a: Patient What is your living situation today?: I have a steady place to live Within the past 12 months, did the food you bought not last and you didn't have the money to get more?: Never true Within the past 12 months, did you worry whether your food would run out before you got money to buy more?: Never true Do you have trouble paying for medicines?: No Do you have trouble getting transportation to medical appointments?: No Do you have trouble paying your heating and electricity bill?: No Do you have trouble taking care of your child, family member or friend?: No Do you have trouble with day-to-day activities such as bathing, preparing meals, shopping, managing finances, etc.?: No Are you currently unemployed and looking for a job?: No Are you interested in more education?: No Please select the resources that you would like help with: None Currently or been in a relationship where the following occur: No concerns reported THRIVE Score: 0 AUDIT C Alcohol Use Questionnaire (AUDIT-C) 1. How often do you have a drink containing alcohol?: Never 3. How often do you have six or more drinks on one occasion?: Never Total Score: 0 Score Reviewed/Action Taken: Yes RHEA-7 AMB Questionnaire RHEA-7 Date RHEA - 7 assessed: 11/15/24 Feeling nervous, anxious, or on edge: 0 = Not at all Not being able to stop or control worryin = Not at all Worrying too much about different things: 0 = Not at all Trouble relaxin = Not at all Being so restless that it is hard to sit still: 0 = Not at all Becoming easily annoyed or irritable: 0 = Not at all Feeling afraid as if something awful might happen: 0 = Not at all Total RHEA-7 score (0-4 normal; 5-9 mild; 10-14 moderate; 15-21 severe): 0 Source: Developed by Drs. Remington Cordova, Blank Nesbtit, Landry Torres and colleagues, with an educational neal from [employer]. RHEA-7 Assessment Billing RHEA-7 Assessment Tool: RHEA-7 Assessment 17370 Physical exam (Primary Care) Vital Signs: Last Vital Signs Temp 96.8 F 11/15/24 10:56 Pulse 80 11/15/24 10:56 Resp 12 11/15/24 10:56 BP 98/66 11/15/24 10:56 Pulse Ox 98 11/15/24 10:56 Oxygen Delivery Method Room Air 11/15/24 10:56 BMI result Body Mass Index 18.1 BMI Assessment/Plan discussion: Low BMI Low, Plan discussed: increase calorie intake Tobacco/Smoking Status: Tobacco use Status Tobacco use date assessed 11/15/24 11/15/24 10:50 Patient Tobacco Use Status Never used Tobacco 11/15/24 10:50 e-Cigarette/Vaping Use Never Used 11/15/24 10:50 PHQ-9: PHQ-9 Score PHQ-9: Total score 0 11/15/24 10:53 Depression Screening Interpretation: Negative Thrive Assessment: Date of Thrive Assessment Date Thrive assessed 11/15/24 11/15/24 10:53 Currently or been in a relationship where the following occur: No concerns reported Coding Level of Care Code Est Pt Prev Care 18-39y(79843) Diagnoses Annual visit for general adult medical examination without abnormal findings Z00.00 Cervical cancer screening Z12.4 Allergy, sequela T78.40XS Encounter type: sequela Family history of thyroid cancer Z80.8 Eczema of both external ears H60.543 Laterality: bilateral Influenza vaccination declined Z28.21 Tetanus, diphtheria, and acellular pertussis (Tdap) vaccination declined Z28.21 Additional Codes RHEA-7 Assessment Billing - RHEA-7 Assessment Tool: RHEA-7 Assessment 99154 ([id number]) PHQ-9 - 45969 - PHQ-9 Billing: Yes ([id number]) Assessment & Plan Assessment & Plan (1) Annual visit for general adult medical examination without abnormal findings: Code(s): Z00.00 - Encounter for general adult medical examination without abnormal findings Category: Medical (2) Cervical cancer screening: Comment: 12/23/2023 Pap is negative. Code(s): Z12.4 - Encounter for screening for malignant neoplasm of cervix Category: Medical (3) Allergies: Code(s): T78.40XA - Allergy, unspecified, initial encounter Category: Medical Qualifiers: Encounter type: sequela Qualified Code(s): T78.40XS - Allergy, unspecified, sequela (4) Family history of thyroid cancer: Comment: [facility] [place] Code(s): Z80.8 - Family history of malignant neoplasm of other organs or systems Category: Medical (5) Eczema of external ear: Code(s): H60.549 - Acute eczematoid otitis externa, unspecified ear Category: Medical Qualifiers: Laterality: bilateral Qualified Code(s): H60.543 - Acute eczematoid otitis externa, bilateral (6) Influenza vaccination declined: Code(s): Z28.21 - Immunization not carried out because of patient refusal Category: Medical (7) Tetanus, diphtheria, and acellular pertussis (Tdap) vaccination declined: Code(s): Z28.21 - Immunization not carried out because of patient refusal Category: Medical Plan . Orders: Orders Comprehensive Met. Panel Today Z00.00 - Encounter for general adult medical examination without abnormal findings, Z80.8 - Family history of malignant neoplasm of other organs or systems Hemoglobin A1c Today Z00.00 - Encounter for general adult medical examination without abnormal findings, Z80.8 - Family history of malignant neoplasm of other organs or systems Microalbumin, Random (w Creat) Today Z00.00 - Encounter for general adult medical examination without abnormal findings, Z80.8 - Family history of malignant neoplasm of other organs or systems Vitamin D 25-OH Total Today Z00.00 - Encounter for general adult medical examination without abnormal findings, Z80.8 - Family history of malignant neoplasm of other organs or systems Lipid Panel Today Z00.00 - Encounter for general adult medical examination without abnormal findings, Z80.8 - Family history of malignant neoplasm of other organs or systems TSH reflex Free T4 Today Z00.00 - Encounter for general adult medical examination without abnormal findings, Z80.8 - Family history of malignant neoplasm of other organs or systems Vitamin B12 and Folate Today Z00.00 - Encounter for general adult medical examination without abnormal findings, Z80.8 - Family history of malignant neoplasm of other organs or systems Medications: New desonide 0.05% 1 appl topical BID PRN 15 grams 2RF itching Patient Instructions: try proactiv or panoxyl otc face wash/lotion/toner to help with acne Health screenings for women You should visit your health care provider from time to time, even if you are healthy. The purpose of these visits is to: Screen for medical issues Assess your risk for future medical problems Encourage a healthy lifestyle Update vaccinations and other preventive care services Help you get to know your provider in case of an illness Information Even if you feel fine, you should still see your provider for regular checkups. These visits can help you avoid problems in the future. For example, the only way to find out if you have high blood pressure is to have it checked regularly. High blood sugar and high cholesterol levels also may not have any symptoms in the early stages. A simple blood test can check for these conditions. There are specific times when you should see your provider or receive specific health screenings. The [place] Preventive Services Task Force publishes a list of recommended screenings. Below are screening guidelines for women ages 18 to 39. BLOOD PRESSURE SCREENING Your blood pressure should be checked at least once every 3 to 5 years if: Your blood pressure is in the normal range (top number less than 120 mm Hg and bottom number less than 80 mm Hg) You don't have risk factors for high blood pressure Ask your provider if you need your blood pressure checked more often if: The top number is 120 to 129 mm Hg or the bottom number is 70 to 79 mm Hg You have diabetes, heart disease, kidney problems, are overweight, or have certain other health conditions You have a first-degree relative with high blood pressure You are Black You had high blood pressure during a If the top number is 130 mm Hg or greater or the bottom number is 80 mm Hg or greater, this is considered stage 1 hypertension. Schedule an appointment with your provider to learn how you can reduce your blood pressure. Watch for blood pressure screenings in your area. Ask your provider if you can stop in to have your blood pressure checked. BREAST CANCER SCREENING Experts do not agree about the benefits of breast self-exams in finding breast cancer or saving lives. Talk to your provider about what is best for you. A screening mammogram is not recommended for most women under age 40. Your provider may discuss and recommend mammograms, MRI scans, or ultrasounds if you have an increased risk for breast cancer, such as: A mother or sister who had breast cancer at a young age (most often starting screening earlier than the age the close relative was diagnosed) You carry a high-risk genetic marker CERVICAL CANCER SCREENING Cervical cancer screening should start at age 21 years unless your provider advises otherwise. After the first test: Women ages 21 through 29 should have a Pap test every 3 years. Exoprts do not agree on whether HPV testing is recommended for this age group. Women ages 30 through 65 should be screened with either a Pap test every 3 years or the HPV test every 5 years or both tests every 5 years (called cotesting ). Women who have been treated for precancer (cervical dysplasia) should continue to have Pap tests for 20 years after treatment or until age 65, whichever is longer. If you have had your uterus and cervix removed (total hysterectomy), and you have not been diagnosed with cervical cancer or precancer (high grade cervical neoplasia), you do not need cervical cancer screening. CHOLESTEROL SCREENING Cholesterol screening should begin at: Age 45 for women with no known risk factors for coronary heart disease Age 20 for women with known risk factors for coronary heart disease Repeat cholesterol screening should take place: Every 5 years for women with normal cholesterol levels More often if changes occur in lifestyle (including weight gain and diet) More often if you have diabetes, heart disease, kidney problems, or certain other conditions DIABETES SCREENING You should be screened for diabetes starting at age 35 and then repeated every 3 years if you have no risk factors for diabetes. Screening may need to start earlier and be repeated more often if you have other risk factors for diabetes, such as: You have a first degree relative with diabetes. You are overweight or have obesity. You have high blood pressure, prediabetes, or a history of heart disease. Screening for diabetes should be done if you are planning to become and you are overweight and have other risk factors such as high blood pressure. DENTAL EXAM Go to the dentist once or twice every year for an exam and cleaning. Your dentist will evaluate if you need more frequent visits. EYE EXAM Have an eye exam every 5 to 10 years before age 40. If you have vision problems, have an eye exam every 2 years or more often if recommended by your provider. You should have an eye exam that includes an examination of your retina (back of your eye) at least every year if you have diabetes. IMMUNIZATIONS Commonly needed vaccines include: Flu shot: get one every year. COVID-19 vaccine: ask your provider what is best for you. Tetanus-diphtheria and acellular pertussis (Tdap) vaccine: have one at or after age 19 as one of your tetanus-diphtheria vaccines if you did not receive it as an adolescent. Tetanus-diphtheria: have a booster (or Tdap) every 10 years. Varicella vaccine: receive 2 doses if you never had chickenpox or the varicella vaccine. Hepatitis B vaccine: receive 2, 3, or 4 doses, depending on your exact circumstances. Measles, mumps, and rubella (MMR) vaccine: receive 1 to 2 doses if you are not already immune to MMR. Your provider can tell you if you are immune. Ask your provider about the human papillomavirus (HPV) vaccine if: You have not received the HPV vaccine in the past You have not completed the full vaccine series (you should catch up on this shot) Ask your provider if you should receive other immunizations if you have certain health problems that increase your risk for some diseases such as pneumonia. INFECTIOUS DISEASE SCREENING Women who are sexually active should be screened for chlamydia and gonorrhea up until age 25. Women 25 years and older should be screened for chlamydia and gonorrhea if at high risk. Screening for hepatitis C: All adults ages 18 to 79 should get a one-time test for hepatitis C. people should be screened at every . Screening for human immunodeficiency virus (HIV): All people ages 15 to 65 should get a one-time test for HIV. Depending on your lifestyle and medical history, you may also need to be s creened for infections such as syphilis and HIV, as well as other infections. PHYSICAL EXAM All adults should visit their provider from time to time, even if they are healthy. The purpose of these visits is to: Screen for disease Assess your risk of future medical problems Encourage a healthy lifestyle Update your vaccinations and other preventive care services Maintain a relationship with a provider in case of an illness Your height, weight, and BMI should be checked at every exam. During your exam, your provider may ask you about: Depression and anxiety Diet and exercise Alcohol and tobacco use Safety issues, such as using seat belts, smoke detectors, and intimate partner violence Your medicines and risk for interactions SKIN SELF-EXAM Your provider may check your skin for signs of skin cancer, especially if you're at high risk, such as if you: Have had skin cancer before Have close relatives with skin cancer Have a weakened immune system OTHER SCREENING Talk with your provider about colon cancer screening if you have a strong family history of colon cancer or polyps, or if you have had inflammatory bowel disease or polyps yourself. Routine bone density screening of women under 40 is not recommended.
[2024-11-15 10:56] VITALS: BP 98/66; PULSE 80; RESP 12; TEMP 36; O2SAT 98; BMI 18.1
--- OUTSIDE RECORDS SUMMARY | 2024-11-15 12:02 | XMS_ITS | Encounter Summary ---
Author Organization [facility] Address [address] [place] [address] Phone Care Team Providers Care [employer] Shuttle Driver Name Role Phone Evelyn Rothman NP Primary Care Provider [phone] Encounter Details Date Type Department Care Team (Late st Contact Info) Description 04/17/2017 Conversion Encounter [address] [address] Social History Tobacco Use Types Packs/Day Years Used Date Smoking Tobacco: Never Comments:Never smoker Comments Unknown Sex and Gender Information Value Date Recorded Sex Assigned at Not on file Legal Sex Female 5:02 PM EDT Gender Identity Not on file Sexual Orientation Not on file documented as of this encounter Plan of Treatment Not on file documented as of this encounter Visit Diagnoses Not on filedocumented in this encounter Care Teams [employer] Sh[employer] Driver Relationship Specialty Start Date End Date Evelyn Rothman NP PCP - General 04/11/17 documented as of this encounter
--- OUTSIDE RECORDS SUMMARY | 2024-11-15 12:03 | XMS_ITS | Clinical Summary ---
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 Immunizations Immunization Administration Dates Next Due DTaP 2004, 4,05/01/2001,01/21,2000 H1N1 08/01/2009 HPV, Quadrivalent 09/20/2014,07/12/2013,05/07/20 13 Hep A, ped/adol 10/12/2015,09/20/2014 Hep B, ped/adol 2000,2000,2000 IPV 05/19/2004, 1,2000,07/09 Influenza, injectable, MDCK, preservative free, quadrivalent 10/25/2016 Influenza, injectable, quadrivalent 09/20/2014 Influenza, injectable, quadr ivalent, preservative free 07/08/2019,12/29/2018,12/26/2017 Influenza, injectable, trivalent 09/06/2009,08/02 Influenza, intranasal, quadrivalent 10/12/2015 Influenza, intranasal, trivalent 08/16/2011,05/02 MMR 05/19/2004,09/22/2001 Meningococcal B Trumenba 07/08/2019,12/29/2018 Meningococcal Conj (Menactra) MCV4P 12/26/2017,0 10/30/2011 Tdap 10/30/2011 Varicella 08/24/2008,10/28/2001 Family History Medical History Relation Name Comments Seizures Brother Patric Schilling No Known Problems Father Luis Schilling No Known Problems Mother Rebekah Eubanks No Known Problems Sister Lisa Schilling Relation Name Status Comments Brother Patric Schilling Alive Brother: Seiz ure disorder Father Luis Schilling Alive Father: Alive and well Mother Rebekah Eubanks Alive Mother: Migraines Other Family history of Diabetes mellitus Sister Lisa Schilling Alive Sister: Ali ve and well Social History Tobacco Use Types Packs/Day Years Used Date Smoking Tobacco: Never Tobacco Cessation:Counseling Given: No Comments:Never smoker Alcohol Use Standard Drinks/Week Comments No 0 (1 standard drink = 0.6 oz pur e alcohol) Hunger/Food Answer Date Recorded No 05/27/2020 Stable Housing Answer Date Recorded No 05/27/2020 Transportation Concerns Answer Date Rec orded No 05/27/2020 Hazards in Home Answer Date Recorded No 12/29/2018 Financing Utilities Answer Date Recorde d No 12/29/2018 Safety at Home Answer Date Recorded No 12/29/2018 Outside Support Answer Date Recorded No 12/29/2018 Understanding Health Concerns Answer Da te Recorded No 12/29/2018 Financing Health Concerns Answer Date R ecorded No 12/29/2018 Missing School or Work Answer Date Ashok rded No 12/29/2018 Comments No Sex and Gender Information Value Date Recorded Sex Assigned at Not on file Legal Sex Female 5:02 PM EDT Gender Identity Not on file Sexual Orientation Not on file Last Filed Vital Signs Vital Sign Reading Time Taken Comments Blood Pressure 96/64 12/29/2018 11:04 AM EDT Pulse 70 12/29/2018 11:04 AM EDT Temperature 36.9 ??C (98.4 ??F) 12/26/2017 1:19 PM ED T Respiratory Rate - - Oxygen Saturation - - Inhaled Oxygen Concentration - - Weight 47.6 kg (105 lb) 12/29/2018 11:04 AM EDT Height 171.5 cm (5' 7.5 ) 12/29/2018 11:04 AM ED T Body Mass Index 16.2 12/29/2018 11:04 AM EDT Plan of Treatment Health Maintenance Due Date Last Done Comments DTaP,Tdap,and Td Vaccines (7 - Td or Tdap) 10/29/2021 10/30/2011, 2004, 09/07/2003, Additional history exists Influenza Vaccines (#1) 2024 07/08/20 19, 12/29/2018, 12/26/2017, Additional history exists COVID-19 Vaccine ( season) 2024 Hepatitis B Vaccines Completed 2000, 2000, 2000 IPV Vaccines Completed 05/19/2004, 10/31, 2000, Additional history exists MMR Vaccines Completed 05/19/2004, 09/22/2001 Varicella Vaccines Completed 08/24/2008, 10/28/2001 HPV Vaccines Completed 09/20/2014, 07/02, 05/07/2013 Hepatitis A Vaccines Completed 10/12/2015, 09/20/19 15 Meningococcal Vaccine Completed 12/26/2017, 012 Men B Vaccine Completed 07/08/2019, 12/29/2018 HIB Vaccines Aged Out No longer eligi ble based on patient's age to complete this topic Pneumococcal Vaccine Aged Out No long er eligible based on patient's age to complete this topic Procedures * Due to [place] Accountable law, this organization might not be sharing sensitive test results. Procedure Name Priority Date/Time Associated Diagnosis Comments CHLAMYDIA AND GONORRHEA, AMPLIFIED Routine 12/29/2018 11:16 AM EDT Screening examination for bacterial and spirochetal disease from Last 3 Months or Most Recently Relevant to Health Maintenance Results * Due to [place] Accountable law, this organization might not be sharing sensitive test results. * Chlamydia and Gonorrhoea, Amplified (12/29/2018 11:16 AM EDT) Chlamydia Trachomatis, DNA Probe NEGATIVE (NEG) [facility] Comment: No Chlamydia Trachomatis RNA detected in this patient's sample ? (REFERENCE RANGE/NORMAL VALUE: NOT DETECTED) ? Note: This test uses bobj developer- mediated amplification method to detect rRNA from C. Trachomatis URINE GC AMP PROBE NEGATIVE (NEG) [facility] Comment: No Neisseria Gonorrhoeae RNA detected in this patient's sample ? (REFERENCE RANGE/NORMAL VALUE: NOT DETECTED) ? NOTE: This test uses bobj developer-mediated amplification method to detect rRNA from N.Gonorrhoeae. A negative result does not preclude infection. In the case of a negative urine result, testing of an endocervical(female) or urethral (male) specimen is recommended if there is high clinical suspicion of infection. Due to very high sensitivity of Nucleic Acid Amplification Test, false positive results may occur. Therefore, specimen handling is extremely important. In patients in whom the disease is unlikely, additional sample for testing should be considered after an initial positive result. The performance characteristics of this test have not been evaluated in children. The Aptima Combo2 assay is not intended for the evaluation of suspected sexual abuse or for other medico-legal indications. The ordering provider should assess if the patient had consensual sex without risk of sexual abuse. Consult the [facility] if needed. Contact phone number . Therapeutic failure or success cannot be determined with the Aptima Combo2 assay since nucleic acid may persist following appropriate antimicrobial therapy. The Centers for Disease Control and Prevention (CDC) recommends confirmatory retesting using culture or a different nucleic acid amplification test when positive results occur, if indicated. Testing performed or reported by [facility], a Service of [facility], [address] [place] [id number] Urine 12/29/2018 11:1 6 AM EDT 12/29/2018 9:20 PM EDT Evelyn Rothman NP LAB MICROBIOLOGY - GENERAL ORDER GINA Final Result [facility] from Last 3 Months or Most Recently Relevant to Health Maintenance Insurance [facility] NON PCC Care Teams Analog Circuit Designer Relationship Specialty Start Date End Date Evelyn Rothman NP PCP - General 04/11/17
== END 2024-11-15 11:20 | disposition home or self-care (01) ==
LOC: HO.HMCFM 10:38
PROVIDERS: PCP Nurse Practitioner Family; Visit Provider Nurse Practitioner Family
DX: Z00.00 Encounter for general adult medical examination without abnormal findings (principal); Z12.4 Encounter for screening for malignant neoplasm of cervix; T78.40XS Allergy, unspecified, sequela; Z80.8 Family history of malignant neoplasm of other organs or systems; H60.543 Acute eczematoid otitis externa, bilateral; Z28.21 Immunization not carried out because of patient refusal

== ENCOUNTER 2024-12-27 09:20 | Outpatient (AMB) | payer OTHER, SELFPAY ==
--- NOTE | 2024-12-27 09:22 | MHC.OFFVIS ---
Vital Signs 12/27/24 09:31 Height 5 ft 8 in Weight 118 lb BMI 17.9 BP 92/54 L Intake Visit Reasons: PRESS ASSISTANT AND FEEDER annual exam Carbide Grinder: Carbide Grinder Present (Nohemi) Accompanied by: Mother Allergies No Known Allergies Allergy (Verified 12/27/24 09:32) Medication List - Last Reconciled 12/27/24 by Shahnaz Ramsey CNM cetirizine (Zyrtec) 10 mg PO DAILY desonide 0.05% 1 appl topical BID PRN Is last menstrual period known: Yes Last menstrual period: 11/28/24 Post menopausal: No Patient : No HPI HPI PRESS ASSISTANT AND FEEDER annual exam: Details: Patient is here with her mother for her road test examiner annual exam. She has still not become sexually active. She and her mother both have just completed a DIRECTOR ORACLE DATABASE course and are studying for the exam. They took the class together and they were able to even do there practical together. They have a plan to take there skills and what they have learned and bring their grandfather home from the halfway where they feel like he is not getting good care after having had an amputation. She has seen her primary care provider recently she has no health concerns other than allergies and acne and the medication her PCC recommended is helping that as well. She is not anticipating becoming sexually active she is planning on chilling. [facility] Medical History No known health problems Surgical History No pertinent past surgical history Social History Household Members: Family Housing: House 75 years or older and lives alone: No Alcohol intake: never Patient Tobacco Use Status: Never used Tobacco e-Cigarette/Vaping Use: Never Used service: No Current occupational status: employed Current occupation: Teacher Sexual orientation: Unable to collect Gender identity: Unable to collect Cognitive needs: No Hearing needs: No Vision needs: No Female Reproductive History Menstrual Age of Menarche: 13 Duration of menses: 3-5 days Date of last menstrual period: 11/28/24 control method: none Total pregnancies: 0 Date of last pap smear: 12/23/23 (negative pap smear) History of abnormal pap smear: No Physical Exam Vital Signs: Last Vital Signs BP 92/54 L 12/27/24 09:31 BMI result Body Mass Index 17.9 Const Other: Patient has some splotchy reddened areas that are appearing on her upper chest and neck, and are becoming redderr throughout the visit. She says she gets these if she is warm they do not itch. General: healthy appearing, comfortable, no acute distress, well developed and alert Nutritional Appearance: average body habitus Orientation/consciousness: patient oriented x3 Limitations: no limitations HEENT Head: Yes normocephalic Neck Neck: Yes normal visual inspection Chest Chest palpation & inspection: normal inspection of the chest Breast/axilla inspection: normal inspection of the breasts and normal inspection of the axillae Breast/axilla palpation: normal palpation of the breasts and normal palpation of the axillae Resp Effort & Inspection: normal respiratory effort GI Inspection: Yes normal to inspection, No Abdominal wall edema and No distended Palpation (GI): Soft to palpation and nontender Other: Pelvic exam was deferred this year as patient is still virginal Pap smear and exam was done last year and she is not having any concerns External Female Exam: normal external appearance Neuro General: patient oriented x3 Results Reviewed Results Reviewed: Name: Gage EubanksBarbara Dunn Age/Sex: 23/F Attending: Shahnaz Ramsey CNM : 2000 Submitted by: Shahnaz Ramsey CNM Copies to: Kate Ybarra NP MR #: [id number] Status: DEP REF Collected: 12/23/23 Location: .LAB Received: 12/24/23 Interpretation Satisfactory for evaluation. Mild inflammation. Negative for intraepithelial lesion or malignancy. Clinical Information LMP: 11/29/23 Previous PAP test: No previous pap Material Received ThinPrep-Cervical Copies To Shahnaz Ramsey [address] [place] [address] Kate Ybarra NP [address] [place] [address] Electronically Signed By: ROSITA Freed (ASCP) 01/12/24 1154 The Pap Test is a screening procedure with the inherent possibility of both false negative and false positive results. Results should be interpreted in the context of historic and current clinical findings. Reliability of the Pap Test is enhanced by performing the test on a regular repetitive basis. Patient: Barbara Mckeon Age/Sex: 23/F MR#: [id number] Page 1 of 1 Assessment & Plan Assessment & Plan (1) Cervical cancer screening: Comment: 12/23/2023 Pap is negative. Code(s): Z12.4 - Encounter for screening for malignant neoplasm of cervix Category: Medical (2) Well woman exam with routine gynecological exam: Comment: Full pelvic exam done 12/23. But deferred 12/24 as not necessary. Code(s): Z01.419 - Encounter for gynecological examination (general) (routine) without abnormal findings Category: Medical (3) Allergies: Code(s): T78.40XA - Allergy, unspecified, initial encounter Category: Medical Qualifiers: Encounter type: sequela Qualified Code(s): T78.40XS - Allergy, unspecified, sequela Plan -----Discussed in this visit the following: healthy balanced diet, regular and consistent exercise, getting recommended health screens, doing the best she can for her particular health concerns, kegel exercises, pap smear screening and followup recommendations, mammography screening and SBE, normal changes in cycles in her life stage--- . Teaching again done about cervical cancer screening the HPV vaccine. Also reviewed her records she would need to check at [facility] records to see if she got the vaccine but her mother thinks she said yes to all vaccines. Discussed the role of the HPV virus. Discussed all current methods of control she is not yet sexually active but I wanted to give her some information for the future. She has a fairly open relationship with her mother and is learning information from her as well reviewed pills patches rings Depo-Provera Nexplanon as well as both IUDs. Pap smear was negative last year the exam was challenging as she was virginal. Exam deferred this year as not necessary as she has still not become sexually active and has no concerns whatsoever.. I wished her and her mother good luck as they then turned to the excellent work of caring for their grandfather. Timeframe/Date Comment RTC 1 year may defer to 2 if desires Coding Level of Care Code Est Pt Prev Care 18-39y([id number]) Diagnoses Cervical cancer screening Z12.4 Well woman exam with routine gynecological exam Z01.419 Allergy, sequela T78.40XS Encounter type: sequela
[2024-12-27 09:31] VITALS: BP 92/54; BMI 17.9
--- OUTSIDE RECORDS SUMMARY | 2024-12-27 10:21 | XMS_ITS | Clinical Summary ---
Author Organization [facility] Address [address] [place] [address] Phone Care Team Providers Care Toe Closing Machine Tender Name Role Phone Stephan Evelyn JORDAN Primary Care Provider [phone] Allergies No known active allergies Medications No [...] complete this topic Procedures * Due to [place] [employer] law, this organization might not be sharing sensitive test results. Procedure Name Priority Date/Time Associated Diagnosis Comments CHLAMYDIA AND GONORRHEA, AMPLIFIED Routine 12/29/2018 11:16 AM EDT Screening examination for bacterial and spirochetal disease from Last 3 Months or Most Recently Relevant to Health Maintenance Results * Due to [place] [employer] law, this organization might not be sharing sensitive test results. * Chlamydia and Gonorrhoea, Amplified (12/29/2018 11:16 AM EDT) Chlamydia Trachomatis, DNA Probe NEGATIVE (NEG) [facility] Comment: No Chlamydia Trachomatis RNA detected in this patient's sample ? (REFERENCE RANGE/NORMAL VALUE: NOT DETECTED) ? Note: This test uses budget director- mediated amplification method to detect rRNA from C. Trachomatis URINE GC AMP PROBE NEGATIVE (NEG) [facility] Comment: No Neisseria Gonorrhoeae RNA detected in this patient's sample ? (REFERENCE RANGE/NORMAL VALUE: NOT DETECTED) ? NOTE: This test uses budget director-mediated amplification method to detect rRNA from N.Gonorrhoeae. [...] without risk of sexual abuse. Consult the [facility] if needed. Contact phone number . Therapeutic failure or success cannot be determined with the Aptima Combo2 assay since nucleic acid may persist following appropriate antimicrobial therapy. The Centers for Disease Control and Prevention (CDC) recommends confirmatory retesting using culture or a different nucleic acid amplification test when positive results occur, if indicated. Testing performed or reported by [facility], a Service of [facility], [address] [place] [id number] Urine 12/29/2018 11:1 6 AM EDT 12/29/2018 9:20 PM EDT Evelyn Rothman NP LAB MICROBIOLOGY - GENERAL ORDER GINA Final Result [facility] from Last 3 Months or Most Recently Relevant to Health Maintenance Insurance [facility] NON PCC Care Teams Toe Closing Machine Tender Relationship Specialty Start Date End Date Evelyn Rothman NP PCP - General 04/11/17
--- OUTSIDE RECORDS SUMMARY | 2024-12-27 10:21 | XMS_ITS | Encounter Summary ---
Author Organization [facility] Address [address] [place] [address] Phone Care Team Providers Care Medical Records Library Professor Name Role Phone Evelyn Rothman NP Primary Care Provider [phone] Encounter Details Date Type Department Care Team (Late st Contact Info) Description 04/17/2017 Conversion Encounter [address] [address] Social History Tobacco Use Types Packs/Day Years [...] on filedocumented in this encounter Care Teams Medical Records Library Professor Relationship Specialty Start Date End Date Evelyn Rothman NP PCP - General 04/11/17 documented as of this encounter
== END 2024-12-27 10:22 | disposition home or self-care (01) ==
LOC: HO.HWS 09:20
PROVIDERS: PCP Nurse Practitioner Family; Visit Provider Advanced Practice Midwife
DX: Z01.419 Encounter for gynecological examination (general) (routine) without abnormal findings (principal)
CPT/HCPCS: 99395; 99459

== ENCOUNTER → 2024-12-27 09:20 | Outpatient (BNVA) | payer OTHER, SELFPAY | PROVIDERS: PCP Nurse Practitioner Family; Visit Provider Advanced Practice Midwife | DX: Z01.419 Encounter for gynecological examination (general) (routine) without abnormal findings (principal); Z12.4 Encounter for screening for malignant neoplasm of cervix; T78.40XD Allergy, unspecified, subsequent encounter | CPT/HCPCS: 99395; 99459 ==

== ENCOUNTER 2024-12-28 09:00 | Outpatient (AMB) | payer OTHER, SELFPAY ==
--- OUTSIDE RECORDS SUMMARY | 2024-12-28 09:35 | XMS_ITS | Clinical Summary ---
Author Organization [facility] Address [address] [place] [address] Phone Care Team Providers Care Machine Maintenance Name Role Phone Stephan Evelyn JORDAN Primary Care Provider [phone] Allergies No known active allergies Medications No [...] complete this topic Procedures * Due to [place] [employer] law, this organization might not be sharing sensitive test results. Procedure Name Priority Date/Time Associated Diagnosis Comments CHLAMYDIA AND GONORRHEA, AMPLIFIED Routine 12/29/2018 11:16 AM EDT Screening examination for bacterial and spirochetal disease from Last 3 Months or Most Recently Relevant to Health Maintenance Results * Due to [place] [employer] law, this organization might not be sharing sensitive test results. * Chlamydia and Gonorrhoea, Amplified (12/29/2018 11:16 AM EDT) Chlamydia Trachomatis, DNA Probe NEGATIVE (NEG) [facility] Comment: No Chlamydia Trachomatis RNA detected in this patient's sample ? (REFERENCE RANGE/NORMAL VALUE: NOT DETECTED) ? Note: This test uses card painter- mediated amplification method to detect rRNA from C. Trachomatis URINE GC AMP PROBE NEGATIVE (NEG) [facility] Comment: No Neisseria Gonorrhoeae RNA detected in this patient's sample ? (REFERENCE RANGE/NORMAL VALUE: NOT DETECTED) ? NOTE: This test uses card painter-mediated amplification method to detect rRNA from N.Gonorrhoeae. [...] without risk of sexual abuse. Consult the [facility] if needed. Contact phone number . Therapeutic failure or success cannot be determined with the Aptima Combo2 assay since nucleic acid may persist following appropriate antimicrobial therapy. The Centers for Disease Control and Prevention (CDC) recommends confirmatory retesting using culture or a different nucleic acid amplification test when positive results occur, if indicated. Testing performed or reported by [facility], a Service of [facility], [address] [place] [id number] Urine 12/29/2018 11:1 6 AM EDT 12/29/2018 9:20 PM EDT Evelyn Rothman NP LAB MICROBIOLOGY - GENERAL ORDER GINA Final Result [facility] from Last 3 Months or Most Recently Relevant to Health Maintenance Insurance [facility] NON PCC Care Teams Machine Maintenance Relationship Specialty Start Date End Date Evelyn Rothman NP PCP - General 04/11/17
--- OUTSIDE RECORDS SUMMARY | 2024-12-28 09:35 | XMS_ITS | Encounter Summary ---
Author Organization [facility] Address [address] [place] [address] Phone Care Team Providers Care Insert Cutter Name Role Phone Evelyn Rothman NP Primary Care Provider [phone] Encounter Details Date Type Department Care Team (Late st Contact Info) Description 04/17/2017 Conversion Encounter [address] [address] Social History Tobacco Use Types Packs/Day Years [...] on filedocumented in this encounter Care Teams Insert Cutter Relationship Specialty Start Date End Date Evelyn Rothman NP PCP - General 04/11/17 documented as of this encounter
--- NOTE | 2024-12-28 10:18 | MHC.OFFWIV ---
Intake Vital Signs 12/28/24 10:23 Weight 119 lb BP 122/80 Blood Pressure Location Lt brachial Position Sitting Pulse 71 Pulse Source Pulse Oximeter Pulse Oximetry (%) 98 Oxygen Delivery Method Room Air Intake Visit Reasons: EP inside of the nose feels swollen Intake Note: Patient here for bump in nose that have been present for about 2 weeks. Patient Tobacco Use Status: Never used Tobacco Allergies No Known Allergies Allergy (Verified 12/28/24 10:24) Do you need a note to return to daycare/school/sports/work: No HPI HPI Comments History of Present Illness Details History - The patient is a 24-year-old female presenting with nasal congestion and suspected nasal polyp. - The congestion primarily affects the right nostril, with onset two weeks prior to the visit, characterized as difficult breathing without pain. - Congestion severity fluctuates, being more pronounced on certain days. - The patient has no known seasonal allergies but experiences symptoms when exposed to her dogs, for which she occasionally takes Zyrtec. - No reports of cough, sneezing, or fever have accompanied the nasal symptoms. Physical Exam General: Cooperative, healthy appearing, comfortable and no acute distress Orientation/consciousness: Patient oriented x3 Limitations: No limitations Head: Normal to inspection Ears: Hearing grossly normal bilaterally, external ears normal Nose: Normal external nose present, right nare has a polyp Face and sinus: Normal facial exam and Yes sinuses nontender Mouth: Normal oral and palatal mucosa present and moist mucous membranes Eyes: Appearance normal, both eyes and all related structures Neck: Normal visual inspection Respiratory:. Normal respiratory effort, able to speak in complete sentences, no respiratory distress, not tachypneic, no tripod positioning and no use of accessory muscles Skin: No rashes or lesions noted Neuro: Patient oriented x3 Extremities: Normal to inspection and Yes no clubbing, cyanosis or edema [facility] Medical History No known health problems Surgical History No pertinent past surgical history Social History Household Members: Family Housing: House 75 years or older and lives alone: No Alcohol intake: never Patient Tobacco Use Status: Never used Tobacco e-Cigarette/Vaping Use: Never Used service: No Current occupational status: employed Current occupation: Teacher Sexual orientation: Unable to collect Gender identity: Unable to collect Cognitive needs: No Hearing needs: No Vision needs: No Female Reproductive History Menstrual Age of Menarche: 13 Review of Systems Const All systems reviewed & are unremarkable except as noted in HPI and below Physical Exam Vital Signs: Last Vital Signs Pulse 71 12/28/24 10:23 BP 122/80 12/28/24 10:23 Pulse Ox 98 12/28/24 10:23 Oxygen Delivery Method Room Air 12/28/24 10:23 Assessment & Plan Assessment & Plan (1) Nasal polyp: Code(s): J33.9 - Nasal polyp, unspecified Plan: Management of the nasal congestion related to a suspected polyp involves starting Fluticasone/Flonase nasal spray twice daily, aiming to decrease inflammation and reduce polyp size. Proper administration techniques were discussed with the patient to ensure efficacy. Additionally, daily Cetirizine/Zyrtec has been recommended to alleviate any possible allergenic responses despite the patient's lack of known seasonal allergies, except for sensitivities related to pet exposure. The patient was advised to notify if symptoms persist, at which point an ENT referral may be initiated by her PCP for further evaluation. Such an approach ensures symptom relief and potential resolution of the obstruction, with follow-up care planned based on treatment outcomes. Patient was informed and verbally consented to the use of an ambient scribe for clinic note documentation during this visit Coding Level of Care Code Est Pt Level 3 (66766) Diagnoses Nasal polyp J33.9
[2024-12-28 10:23] VITALS: BP 122/80; PULSE 71; O2SAT 98
== END 2024-12-28 10:44 | disposition home or self-care (01) ==
PROVIDERS: PCP Nurse Practitioner Family; Visit Provider Physician Assistant
DX: J33.9 Nasal polyp, unspecified (principal)

== ENCOUNTER → 2024-12-28 09:00 | Outpatient (BNVA) | payer OTHER, SELFPAY | PROVIDERS: PCP Nurse Practitioner Family; Visit Provider Physician Assistant | DX: J33.9 Nasal polyp, unspecified (principal) | CPT/HCPCS: 99212 ==